=== PATIENT | male | born 1965 | race African-American/Black ===

== ENCOUNTER 2024-08-02 17:21 | Emergency (ER) | payer OTHER ==
[~2024-08-02] VITALS: Ht 172.7 cm; Wt 75.0 kg
[2024-08-02 18:16] VITALS: O2SAT 98
[2024-08-02 19:23] LABS: CHLORIDE 105 mEq/L (98-107); POTASSIUM 4.1 mEq/L (3.5-5.1); SODIUM 138 mEq/L (136-145)
[2024-08-02 19:25] LABS: CALCIUM 9.6 mg/dL (8.7-10.4); CARBON DIOXIDE 25 mEq/L (21-32)
[2024-08-02 19:30] LABS: BASOPHILS % 0.6 % (0.0-2.0); CREATININE 1.1 mg/dL (0.6-1.3); EOSINOPHILS % 0.2 % (0.0-5.0); GLUCOSE 99 mg/dL (70-105); HEMOGLOBIN. 15.6 g/dL (14.0-18.0); LYMPHOCYTES % 15.1 % (20.0-50.0); MEAN CORPUSCULAR HEMOGLOBIN 29.9 pg (28.0-32.0); MEAN CORPUSCULAR HGB CONC 32.5 g/dL (31.0-37.0); MEAN PLATELET VOLUME 7.4 fl (7.4-10.4); MONOCYTES % 7.1 % (2.0-8.0); PLATELET 200 x1000/uL (130-400); RED BLOOD CELL COUNT 5.21 mill/uL (4.7-6.1); RED CELL DISTRIBUTION WIDTH 14.2 % (11.6-14.6); UREA NITROGEN BLOOD 11 mg/dL (9-23); WHITE BLOOD COUNT 5.2 x1000/uL (4.5-11.0)
[2024-08-02 19:32] LABS: ALANINE AMINOTRANSFERASE 17 IU/L (10-49); ALBUMIN 4.3 g/dL (3.2-4.8); ASPARTATE AMINOTRANSFERASE 20 IU/L (<34); BILIRUBIN DIRECT 0.3 mg/dL (<=3.0)
[2024-08-02 19:33] LABS: BILIRUBIN TOTAL 0.9 mg/dL (0.1-1.0)
[2024-08-02] MEDS ORDERED: HYDROCODONE/ACETAMINOPHEN 5/325MG TABLET PO ONE (21:00)
[2024-08-02] MEDS ORDERED: FAMO-135 MT (22:32)
[2024-08-02] MEDS: HYDROCODONE/ACETAMINOPHEN 5/325MG TABLET PO NR (23:04)
[2024-08-02 23:07] VITALS: BP 119/87; PULSE 67; RESP 20; TEMP 36.89184; O2SAT 100
== END 2024-08-02 23:10 | disposition home or self-care (01) ==
LOC: ER 17:21
DX: R10.12 Left upper quadrant pain (principal)
CPT/HCPCS: 36415; 74176; 80048; 80076; 85025; 99284

== ENCOUNTER 2025-01-25 15:47 | Emergency (ER) | payer OTHER ==
[~2025-01-25] VITALS: Ht 172.7 cm; Wt 77.1 kg
[~2025-01-25 15:47] MED LIST: FAMO-135 MT
[2025-01-25 15:52] VITALS: O2SAT 99
[2025-01-25 16:42] LABS: CLARITY URINE CLEAR (CLEAR); COLOR URINE YELLOW (YELLOW); GLUCOSE URINE NEGATIVE (NEGATIVE); KETONES URINE TRACE (NEGATIVE); LEUKOCYTE ESTERASE URINE NEGATIVE (NEGATIVE); NITRITE URINE NEGATIVE (NEGATIVE); OCCULT BLOOD URINE NEGATIVE (NEGATIVE); PH URINE 6.5 (4.5-8.0); PROTEIN URINE NEGATIVE (NEGATIVE); SPECIFIC GRAVITY URINE 1.033 (1.005-1.030)
[2025-01-25 16:58] LABS: BASOPHILS % 0.7 % (0.0-2.0); EOSINOPHILS % 2.5 % (0.0-5.0); HEMATOCRIT. 41.4 % (42.0-52.0); HEMOGLOBIN. 14.2 g/dL (14.0-18.0); LYMPHOCYTES % 30.8 % (20.0-50.0); MEAN CORPUSCULAR HEMOGLOBIN 31.3 pg (28.0-32.0); MEAN CORPUSCULAR HGB CONC 34.3 g/dL (31.0-37.0); MEAN CORPUSCULAR VOLUME 91.2 fL (80.0-94.0); MONOCYTES % 5.1 % (2.0-8.0); NEUTROPHILS % 60.9 % (40.0-76.0); PLATELET 226 x1000/uL (130-400); RED BLOOD CELL COUNT 4.54 mill/uL (4.7-6.1); RED CELL DISTRIBUTION WIDTH 14.1 % (11.6-14.6); WHITE BLOOD COUNT 5.6 x1000/uL (4.5-11.0)
[2025-01-25 18:27] LABS: CHLORIDE 108 mEq/L (98-107); POTASSIUM 3.9 mEq/L (3.5-5.1); SODIUM 144 mEq/L (136-145)
[2025-01-25 18:28] LABS: CALCIUM 9.7 mg/dL (8.7-10.4); CARBON DIOXIDE 29 mEq/L (21-32)
[2025-01-25 18:33] LABS: CREATININE 1.2 mg/dL (0.6-1.3); GLUCOSE 111 mg/dL (70-105); UREA NITROGEN BLOOD 14 mg/dL (9-23)
[2025-01-25] MEDS ORDERED: FAMO-135 MT (18:55)
[2025-01-25] MEDS: FAMOTIDINE 20MG TABLET PO ONE (19:12)
[2025-01-25] MEDS: MAGNESIUM/ALUMINUM HYDROXIDE/SIMETHICONE 30ML UDC PO ONE (19:12)
[2025-01-25 19:15] VITALS: BP 129/82; PULSE 62; RESP 18; TEMP 37; O2SAT 99
== END 2025-01-25 19:15 | disposition home or self-care (01) ==
LOC: ER 15:47
DX: K29.70 Gastritis, unspecified, without bleeding (principal); Z98.890 Other specified postprocedural states
CPT/HCPCS: 36415; 74176; 80048; 81003; 85025; 99284

== ENCOUNTER 2025-04-01 08:08 | Emergency (ER) | payer OTHER ==
[~2025-04-01] VITALS: Ht 172.7 cm; Wt 82.0 kg
[2025-04-01 08:14] VITALS: TEMP 36.9; O2SAT 100
[2025-04-01] MEDS: HYDROCODONE/ACETAMINOPHEN 10/325MG TABLET PO ONE (08:48)
[2025-04-01] MEDS: LIDOCAINE 5% PATCH TOP SCH (08:48)
[2025-04-01] MEDS ORDERED: LIDO700A30 TP (10:27)
[2025-04-01] MEDS ORDERED: IBUP-2029 MT (10:27)
[2025-04-01 10:50] VITALS: BP 136/86; PULSE 65; RESP 18; O2SAT 100
== END 2025-04-01 10:56 | disposition home or self-care (01) ==
LOC: ER 08:08
DX: M51.360 Other intervertebral disc degeneration, lumbar region with discogenic back pain only (principal); M19.072 Primary osteoarthritis, left ankle and foot; W18.39XA Other fall on same level, initial encounter; Y93.89 Activity, other specified; Y92.89 Other specified places as the place of occurrence of the external cause; Y99.8 Other external cause status
CPT/HCPCS: 72100; 73630; 99284

== ENCOUNTER 2025-06-28 19:08 | Emergency (ER) | payer OTHER ==
[~2025-06-28] VITALS: Ht 172.7 cm; Wt 75.0 kg
[~2025-06-28 19:08] MED LIST changes: +IBUP-1455 MT; +LIDO700A30 TP
[2025-06-28 19:10] VITALS: O2SAT 98
[2025-06-28] MEDS: HYDROCODONE/ACETAMINOPHEN 5/325MG TABLET PO ONE (20:09)
[2025-06-28] MEDS: KETOROLAC 30MG/ML VIAL IM ONE (20:10)
[2025-06-28] MEDS ORDERED: HYDR-4350 MT (20:49)
[2025-06-28 21:14] VITALS: BP 115/82; PULSE 62; RESP 18; TEMP 37.2; O2SAT 98
== END 2025-06-28 21:14 | disposition home or self-care (01) ==
LOC: ER 19:08
DX: M54.30 Sciatica, unspecified side (principal); M17.12 Unilateral primary osteoarthritis, left knee
CPT/HCPCS: 93971; 73562; 96372; 99285; J1885; Z7610